=== PATIENT | female | born 1965 | race Hispanic/Latino ===

== ENCOUNTER → 2018-04-13 | Outpatient (CLI) | payer OTHER | END | disposition home or self-care (01) | LOC: RAH 13:06 | PROVIDERS: ATTEND Obstetrics & Gynecology | DX: R10.2 Pelvic and perineal pain (principal) | CPT/HCPCS: 76856 ==

== ENCOUNTER → 2018-05-02 | Outpatient (CLI) | payer OTHER | END | disposition home or self-care (01) | LOC: RAH 12:32 | PROVIDERS: ATTEND Obstetrics & Gynecology | DX: Z12.31 Encounter for screening mammogram for malignant neoplasm of breast (principal) | CPT/HCPCS: 77067 ==

== ENCOUNTER → 2018-05-07 | Outpatient (CLI) | payer OTHER ==
[2018-05-07 12:48] LABS: ALBUMIN 3.9 g/dL (3.5-5.0); BILIRUBIN,TOTAL 0.3 mg/dL (0.2-1.0); CREATININE 0.6 mg/dL (0.5-1.5)
== END | disposition home or self-care (01) ==
LOC: LAB 11:51
PROVIDERS: ATTEND Internal Medicine
DX: R10.33 Periumbilical pain (principal)
CPT/HCPCS: 36415; 80053

== ENCOUNTER → 2018-05-10 | Outpatient (CLI) | payer OTHER ==
[~2018-05-10] MED LIST: IOHEXOL 350 MG/ML 100ML INFUS..BTL IV ONE
== END | disposition home or self-care (01) ==
LOC: OIH 09:56
PROVIDERS: ATTEND Internal Medicine
DX: K57.30 Diverticulosis of large intestine without perforation or abscess without bleeding (principal); K44.9 Diaphragmatic hernia without obstruction or gangrene
CPT/HCPCS: 74178; Q9967

== ENCOUNTER 2018-06-15 05:32 | Day surgery (SDC) | payer OTHER ==
[~2018-06-15] VITALS: Ht 152.4 cm; Wt 88.9 kg
[~2018-06-15 05:32] MED LIST changes: -IOHEXOL 350 MG/ML 100ML INFUS..BTL IV ONE; +OMEP20CA10 PO
[2018-06-15] MEDS ORDERED: SODIUM CHLORIDE 0.9% 1000ML 1,000 ML IV ONE (05:54)
[2018-06-15 06:06] VITALS: BP 126/70
[2018-06-15] MEDS ORDERED: LIDOCAINE HCL 1% 20 ML VIAL ONE (07:09)
[2018-06-15] MEDS ORDERED: PROPOFOL 10 MG/ML 20ML VIAL IV ONE ×2 (07:17→07:36)
[2018-06-15 07:47] VITALS: BP 97/46
[2018-06-15 07:51] VITALS: BP 96/59
[2018-06-15 07:56] VITALS: BP 103/69
[2018-06-15 08:04] VITALS: BP 115/68
== END 2018-06-15 08:21 | disposition home or self-care (01) ==
LOC: DAH 05:32 → ENDO 05:32
PROVIDERS: ATTEND Internal Medicine
DX: Z12.11 Encounter for screening for malignant neoplasm of colon (principal); D12.2 Benign neoplasm of ascending colon; K63.5 Polyp of colon; K57.30 Diverticulosis of large intestine without perforation or abscess without bleeding; K64.0 First degree hemorrhoids; K29.50 Unspecified chronic gastritis without bleeding; K31.7 Polyp of stomach and duodenum; K44.9 Diaphragmatic hernia without obstruction or gangrene; K29.80 Duodenitis without bleeding; K31.89 Other diseases of stomach and duodenum; K21.0 Gastro-esophageal reflux disease with esophagitis; Z90.49 Acquired absence of other specified parts of digestive tract; Z98.890 Other specified postprocedural states; E66.9 Obesity, unspecified; Z68.39 Body mass index [BMI] 39.0-39.9, adult; Z86.010 Personal history of colon polyps
CPT/HCPCS: 43239; 43251; 45380; A4606; J2704 ×2; J7030

== ENCOUNTER → 2018-06-29 | Outpatient (CLI) | payer OTHER ==
[2018-06-29 10:57] LABS: BASOPHILS % (AUTO) 0.8 % (0.0-5.0); EOSINOPHILS % (AUTO) 1.1 % (0.0-8.0); HEMATOCRIT 43.5 % (36-48); MEAN CORPUSCULAR HEMOGLOBIN 28.1 pg (27.0-33.0); MEAN CORPUSCULAR HGB CONC 32.6 g/dL (32.0-36.0); MEAN CORPUSCULAR VOLUME 86.1 fL (79-99); MONOCYTES % (AUTO) 8.4 % (3.0-13.0); NEUTROPHILS % (AUTO) 50.7 % (40.0-77.0); PLATELET COUNT (AUTO) 291 K/uL (130-400); RED BLOOD CELL COUNT(AUTO) 5.05 MIL/uL (4.00-5.50); RED CELL DISTRIBUTION WIDTH 13.4 % (11.0-15.5); WHITE BLOOD COUNT (AUTO) 4.1 K/uL (4.8-10.8)
[2018-06-29 11:11] LABS: HEMOGLOBIN A1C 5.9 % (4.0-6.0)
[2018-06-29 11:22] LABS: BILIRUBIN,TOTAL 0.4 mg/dL (0.2-1.0); CREATININE 0.6 mg/dL (0.5-1.5); POTASSIUM 4.2 mmol/L (3.5-5.1); THYROID STIMULATING HORMONE 0.6 uIU/mL (0.36-3.74); TOTAL PROTEIN, SERUM 8.1 g/dL (6.0-8.3)
== END | disposition home or self-care (01) ==
LOC: LAB 10:13
PROVIDERS: ATTEND Internal Medicine
DX: R63.5 Abnormal weight gain (principal)
CPT/HCPCS: 36415; 80053; 80061; 83036; 84443; 85025

== ENCOUNTER 2018-07-20 05:30 | Day surgery (SDC) | payer OTHER ==
[2018-07-17 13:19] VITALS: BP 170/73
[2018-07-17 13:26] LABS: EOSINOPHILS % (AUTO) 1.8 % (0.0-8.0); HEMATOCRIT 41.4 % (36-48); LYMPHOCYTES % (AUTO) 39.4 % (21.0-51.0); MEAN CORPUSCULAR HEMOGLOBIN 28.3 pg (27.0-33.0); MEAN CORPUSCULAR HGB CONC 33.1 g/dL (32.0-36.0); MEAN CORPUSCULAR VOLUME 85.7 fL (79-99); MONOCYTES % (AUTO) 8.9 % (3.0-13.0); NEUTROPHILS % (AUTO) 48.9 % (40.0-77.0); NUCLEATED RED BLOOD CELLS 0.1 % (0.0-0.19); PLATELET COUNT (AUTO) 229 K/uL (130-400); RED BLOOD CELL COUNT(AUTO) 4.83 MIL/uL (4.00-5.50); RED CELL DISTRIBUTION WIDTH 13.5 % (11.0-15.5); WHITE BLOOD COUNT (AUTO) 4.6 K/uL (4.8-10.8)
[2018-07-17 13:38] LABS: ALBUMIN 3.9 g/dL (3.5-5.0); BILIRUBIN,TOTAL 0.4 mg/dL (0.2-1.0); CREATININE 0.7 mg/dL (0.5-1.5); POTASSIUM 3.6 mmol/L (3.5-5.1)
[2018-07-20] VITALS (26 sets, daily range): BP systolic 99–130; BP diastolic 47–72
[~2018-07-20] VITALS: Ht 152.4 cm; Wt 90.1 kg
[~2018-07-20 05:30] MED LIST changes: +TERB250T51 PO
[2018-07-20] MEDS ORDERED: LACTATED RINGERS 1000ML 1,000 ML IV ONE (05:49)
[2018-07-20] MEDS ORDERED: BUPIVACAINE/PF 0.25% 30ML VIAL IJ ONE (05:49)
[2018-07-20] MEDS: CEFAZOLIN SODIUM 1 GM VIAL ONE ×2 (06:10→07:20)
[2018-07-20] MEDS ORDERED: MIDAZOLAM HCL 1 MG/ML 2ML VIAL ONE (06:32)
[2018-07-20] MEDS ORDERED: ONDANSETRON HCL 4 MG/2 ML VIAL ONE ×2 (06:32→10:04)
[2018-07-20] MEDS ORDERED: PROPOFOL 10 MG/ML 20ML VIAL IV ONE (06:32)
[2018-07-20] MEDS ORDERED: LIDOCAINE PF 2% 5ML ABBOJECT ONE (06:32)
[2018-07-20] MEDS ORDERED: ROCURONIUM 10MG/1ML SYR 10 MG/ML ML ONE ×2 (06:33→08:12)
[2018-07-20] MEDS ORDERED: FENTANYL CITRATE PF 50 MCG/1 ML 2ML VIAL ONE ×4 (06:34→10:04)
[2018-07-20] MEDS ORDERED: VASOPRESSIN 20 UNITS/ML 1ML VIAL ONE (07:23)
[2018-07-20] MEDS ORDERED: EPHEDRINE SULFATE 50 MG/ML AMPULE ONE (07:33)
[2018-07-20] MEDS ORDERED: MAGNESIUM SULFATE 1 GM/2 ML VIAL ONE (07:45)
[2018-07-20] MEDS ORDERED: GLYCOPYRROLATE 1 MG/5 ML SYRINGE ONE (09:21)
[2018-07-20] MEDS ORDERED: ESMOLOL HCL 10 MG/ML 10 ML VIAL ONE (09:31)
[2018-07-20] MEDS ORDERED: METOCLOPRAMIDE 10 MG/2 ML VIAL ONE (10:04)
[2018-07-20] MEDS ORDERED: FAMOTIDINE/PF 20 MG/2 ML VIAL IV ONE (10:06)
[2018-07-20] MEDS ORDERED: PROMETHAZINE HCL 25 MG/ML 1ML AMPULE IM ONE (13:27)
[2018-07-20] MEDS ORDERED: PROMETHAZINE HCL 25 MG/ML 1ML AMPULE IM SCH (14:15)
== END 2018-07-20 15:15 | disposition home or self-care (01) ==
LOC: DAH 05:30
PROVIDERS: ATTEND Obstetrics & Gynecology
DX: D25.9 Leiomyoma of uterus, unspecified (principal); Z68.38 Body mass index [BMI] 38.0-38.9, adult; Z79.899 Other long term (current) drug therapy; Z82.49 Family history of ischemic heart disease and other diseases of the circulatory system; Z80.41 Family history of malignant neoplasm of ovary; Z86.010 Personal history of colon polyps; E66.01 Morbid (severe) obesity due to excess calories
CPT/HCPCS: 36415; 58545; 80053; 85025; 86850; 86900; 86901; 88305; A4215; A4218; A4344; A4452; A4510; A4600; A4649 ×3; A4930; C1769 ×3; J0690; J2001; J2250; J2405 ×2; J2550; J2704; J2765; J3010 ×4; J3475; J3490 ×6; J7030; J7040; J7120 ×2

== ENCOUNTER → 2018-08-17 | Outpatient (CLI) | payer OTHER | END | disposition home or self-care (01) | LOC: LAB 16:33 | PROVIDERS: ATTEND Obstetrics & Gynecology | DX: N95.1 Menopausal and female climacteric states (principal) | CPT/HCPCS: 36415; 82670; 83001 ==

== ENCOUNTER → 2018-08-20 | Outpatient (CLI) | payer OTHER ==
[2018-08-20 08:20] LABS: ALBUMIN 3.7 g/dL (3.5-5.0); BILIRUBIN,DIRECT 0.1 mg/dL (0.0-0.3); BILIRUBIN,TOTAL 0.3 mg/dL (0.2-1.0); TOTAL PROTEIN, SERUM 7.6 g/dL (6.0-8.3)
== END | disposition home or self-care (01) ==
LOC: LAB 07:37
PROVIDERS: ATTEND Internal Medicine
DX: Z79.899 Other long term (current) drug therapy (principal)
CPT/HCPCS: 36415; 80076

== ENCOUNTER → 2019-01-01 | Outpatient (CLI) | payer OTHER ==
[2019-01-01 08:10] LABS: BASOPHILS % (AUTO) 0.8 % (0.0-5.0); EOSINOPHILS % (AUTO) 1.5 % (0.0-8.0); HEMATOCRIT 41.2 % (36-48); LYMPHOCYTES % (AUTO) 37.5 % (21.0-51.0); MEAN CORPUSCULAR HEMOGLOBIN 28.7 pg (27.0-33.0); MEAN CORPUSCULAR HGB CONC 33.3 g/dL (32.0-36.0); MEAN CORPUSCULAR VOLUME 85.9 fL (79-99); MONOCYTES % (AUTO) 7.9 % (3.0-13.0); NEUTROPHILS % (AUTO) 52.3 % (40.0-77.0); PLATELET COUNT (AUTO) 304 K/uL (130-400); RED BLOOD CELL COUNT(AUTO) 4.79 MIL/uL (4.00-5.50); RED CELL DISTRIBUTION WIDTH 13.7 % (11.0-15.5); WHITE BLOOD COUNT (AUTO) 5.7 K/uL (4.8-10.8)
[2019-01-01 08:25] LABS: ALBUMIN 3.8 g/dL (3.5-5.0); BILIRUBIN,TOTAL 0.3 mg/dL (0.2-1.0); CREATININE 0.7 mg/dL (0.5-1.5); POTASSIUM 4.3 mmol/L (3.5-5.1); TOTAL PROTEIN, SERUM 7.8 g/dL (6.0-8.3)
== END | disposition home or self-care (01) ==
LOC: LAB 07:12
PROVIDERS: ATTEND Internal Medicine
DX: R73.01 Impaired fasting glucose (principal); E78.5 Hyperlipidemia, unspecified
CPT/HCPCS: 36415; 80053; 80061; 83036; 85025

== ENCOUNTER → 2019-01-11 | Outpatient (CLI) | payer OTHER | END | disposition home or self-care (01) | LOC: RAH 16:32 | PROVIDERS: ATTEND Internal Medicine | DX: M47.812 Spondylosis without myelopathy or radiculopathy, cervical region (principal) | CPT/HCPCS: 72040 ==

== ENCOUNTER → 2019-05-03 | Outpatient (CLI) | payer OTHER ==
[~2019-05-03] MED LIST changes: +OMEP-50 PO; -OMEP20CA10 PO
== END | disposition home or self-care (01) ==
LOC: RAH 11:35
PROVIDERS: ATTEND Internal Medicine
DX: Z12.31 Encounter for screening mammogram for malignant neoplasm of breast (principal)
CPT/HCPCS: 77067

== ENCOUNTER → 2019-05-31 | Outpatient (CLI) | payer OTHER | END | disposition home or self-care (01) | LOC: RAH 12:50 | PROVIDERS: ATTEND Surgery | DX: K43.2 Incisional hernia without obstruction or gangrene (principal); K57.90 Diverticulosis of intestine, part unspecified, without perforation or abscess without bleeding; N20.0 Calculus of kidney | CPT/HCPCS: 74176 ==

== ENCOUNTER → 2019-06-04 | Outpatient (CLI) | payer OTHER ==
[2019-06-04 08:27] LABS: HEMOGLOBIN A1C 5.8 % (4.0-6.0)
[2019-06-04 08:41] LABS: ALBUMIN 3.6 g/dL (3.5-5.0); BILIRUBIN,TOTAL 0.3 mg/dL (0.2-1.0); CREATININE 0.7 mg/dL (0.5-1.5); POTASSIUM 4.5 mmol/L (3.5-5.1); TOTAL PROTEIN, SERUM 7.5 g/dL (6.0-8.3)
== END | disposition home or self-care (01) ==
LOC: LAB 07:04
PROVIDERS: ATTEND Internal Medicine
DX: E78.5 Hyperlipidemia, unspecified (principal); E88.81 Metabolic syndrome and other insulin resistance; I10 Essential (primary) hypertension; E11.65 Type 2 diabetes mellitus with hyperglycemia
CPT/HCPCS: 36415; 80053; 80061; 82043; 83036

== ENCOUNTER → 2019-06-17 | Outpatient (CLI) | payer OTHER | END | disposition home or self-care (01) | LOC: RAH 11:35 | PROVIDERS: ATTEND Internal Medicine | DX: D25.9 Leiomyoma of uterus, unspecified (principal) | CPT/HCPCS: 76830 ==

== ENCOUNTER 2019-07-09 13:00 | Observation (INO) | payer OTHER ==
[~2019-07-09] VITALS: Ht 152.4 cm; Wt 91.8 kg
[2019-07-09 14:48] LABS: BASOPHILS % (AUTO) 0.4 % (0.0-5.0); EOSINOPHILS % (AUTO) 2.5 % (0.0-8.0); HEMATOCRIT 39.6 % (36-48); LYMPHOCYTES % (AUTO) 32.7 % (21.0-51.0); MEAN CORPUSCULAR HGB CONC 33.8 g/dL (32.0-36.0); MEAN CORPUSCULAR VOLUME 85.7 fL (79-99); MONOCYTES % (AUTO) 9.5 % (3.0-13.0); NEUTROPHILS % (AUTO) 54.8 % (40.0-77.0); PLATELET COUNT (AUTO) 323 K/uL (130-400); RED BLOOD CELL COUNT(AUTO) 4.62 MIL/uL (4.00-5.50); RED CELL DISTRIBUTION WIDTH 13.2 % (11.0-15.5); WHITE BLOOD COUNT (AUTO) 6.9 K/uL (4.8-10.8)
[2019-07-09 15:13] VITALS: BP 142/69
[2019-07-09] MEDS ORDERED: PROG200C11 PO (15:31)
[2019-07-09] MEDS ORDERED: ESOM40CA54 PO (15:31)
[2019-07-09] MEDS ORDERED: estradiol patch (15:31)
[2019-07-11] VITALS (24 sets, daily range): BP systolic 117–146; BP diastolic 65–79
[2019-07-11] MEDS: CEFAZOLIN SODIUM 1 GM VIAL IVP SCH ×4 (09:45→19:41)
[2019-07-11] MEDS ORDERED: LACTATED RINGERS 1000ML 1,000 ML IV ONE (10:13)
[2019-07-11] MEDS ORDERED: SCOPOLAMINE HYDROBROMIDE 1 EACH ADH..PATCH TD ONE (10:47)
[2019-07-11] MEDS ORDERED: METOCLOPRAMIDE 10 MG/2 ML VIAL ONE (10:47)
[2019-07-11] MEDS ORDERED: PROPOFOL 10 MG/ML 20ML VIAL IV ONE (10:54)
[2019-07-11] MEDS ORDERED: MIDAZOLAM HCL 1 MG/ML 2ML VIAL ONE (10:54)
[2019-07-11] MEDS ORDERED: LIDOCAINE PF 2% 5ML ABBOJECT ONE (10:54)
[2019-07-11] MEDS ORDERED: FENTANYL CITRATE PF 50 MCG/1 ML 2ML VIAL ONE ×2 (10:55→12:06)
[2019-07-11] MEDS ORDERED: ROCURONIUM 10MG/1ML SYR 10 MG/ML ML ONE ×2 (10:55→12:21)
[2019-07-11] MEDS ORDERED: DEXAMETHASONE SOD PHOSPHATE 10MG/ML 1ML VIAL ONE (11:47)
[2019-07-11] MEDS ORDERED: ONDANSETRON HCL 4 MG/2 ML VIAL ONE (11:48)
[2019-07-11] MEDS ORDERED: DiphenhydrAMINE HCL 50 MG/ML VIAL ONE (11:48)
[2019-07-11] MEDS ORDERED: GLYCOPYRROLATE 1 MG/5 ML SYRINGE ONE (11:49)
[2019-07-11] MEDS ORDERED: NEOSTIGMINE 5MG/5ML SYR IV ONE (11:49)
[2019-07-11] MEDS ORDERED: ROPIVACAINE 0.5% 5MG/ML 30ML IJ ONE (13:16)
[2019-07-11] MEDS: LACTATED RINGERS 1000ML 1,000 ML IV SCH (13:21)
[2019-07-11] MEDS ORDERED: ONDANSETRON HCL 4 MG/2 ML VIAL IVP PRN (13:30)
[2019-07-11] MEDS ORDERED: ACETAMINOPHEN 325 MG TAB PO PRN (13:30)
[2019-07-11] MEDS ORDERED: SODIUM CHLORIDE 0.9% 10 ML VIAL ONE (13:33)
[2019-07-11] MEDS ORDERED: MEPERIDINE-PF 25 MG/ML SYG ONE (13:57)
--- NOTE | 2019-07-11 15:35 | NUR ---
PT ADMISSION FROM SURGERY POSTOP RECOVERY . PER SERVICES OF DR FARLEY. 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 ASSESSMENT DONE TO HER ABD .DRSG , IS DRY AND CLEAN . SETUP IVF OF LR AT 75 CCHR . SCD ON .HOB UP. SETUP POSTOP . V/S . FOR MONITOR CARE. REVIEW PLAN OF CARE, AND ORDERS . FALL RISK AND CARE, BED LEVEL DOWN. NOTED A FIELDS CATHETER SECURE TO HER LT THIGH, WITH A CLEAR URINE FLOW . TO BEDSIDE FIELDS CATHETER BAG, . OFF THE FLOOR. CALL LIGHT IN REACH.
[2019-07-11] MEDS: MORPHINE SULFATE 2 MG/ML 1ML SYG IV PRN (17:12)
[2019-07-11] MEDS: MORPHINE SULFATE 4 MG/1ML SYG IV PRN (19:47)
[2019-07-12] VITALS (7 sets, daily range): BP systolic 104–135; BP diastolic 59–69
[2019-07-12] MEDS: LACTATED RINGERS 1000ML 1,000 ML IV SCH ×2 (02:16→10:40)
[2019-07-12] MEDS: CEFAZOLIN SODIUM 1 GM VIAL IVP SCH ×3 (03:16→10:39)
[2019-07-12] MEDS: MORPHINE SULFATE 4 MG/1ML SYG IV PRN (03:31)
[2019-07-12 05:45] LABS: CREATININE 0.6 mg/dL (0.5-1.5); POTASSIUM 3.8 mmol/L (3.5-5.1)
[2019-07-12] MEDS: MORPHINE SULFATE 2 MG/ML 1ML SYG IV PRN ×3 (10:40→19:27)
[2019-07-13 03:00] VITALS: BP 137/85
[2019-07-13] MEDS: LACTATED RINGERS 1000ML 1,000 ML IV SCH (04:52)
[2019-07-13 06:10] LABS: CREATININE 0.6 mg/dL (0.5-1.5); POTASSIUM 3.8 mmol/L (3.5-5.1)
[2019-07-13 08:00] VITALS: BP 143/78
[2019-07-13] MEDS: CEFAZOLIN SODIUM 1 GM VIAL IVP SCH (08:55)
[2019-07-13 11:10] VITALS: BP 130/73
[2019-07-13] MEDS ORDERED: TYL4 PO (12:18)
--- NOTE | 2019-07-13 12:46 | NUR ---
PER DR. FARLEY ORDER FIELDS CATH WAS REMOVED USING CLEAN AND SAFE TECHNIQUES. DAUTHER AT BEDSIDE A WITNESS. NO COMPLICATIONS
== END 2019-07-13 13:50 | disposition home or self-care (01) ==
LOC: DAHIP 07-11 09:25 → EDSTATUS 07-11 13:00 → 3BH 07-11 14:45
PROVIDERS: ADMIT Surgery; ATTEND Surgery
DX: K43.2 Incisional hernia without obstruction or gangrene (principal); Z90.49 Acquired absence of other specified parts of digestive tract
CPT/HCPCS: 36415 ×3; 49560; 49568; 71045; 80048 ×2; 85025; 88302; 96374; 96375 ×2; 96376 ×3; A4215; A4221; A4222; A4223; A4452; A4600; A4606; A4663; A6260; C1768; G0378 ×48; J0690 ×5; J1100; J1200; J2001; J2175; J2250; J2270 ×2; J2405 ×2; J2704; J2710; J2765; J2795; J3010 ×2; J3490; J7120 ×6

== ENCOUNTER → 2019-12-09 | Outpatient (CLI) | payer OTHER ==
[~2019-12-09] MED LIST changes: +ESOM40CA54 PO; -OMEP-50 PO; +PROG200C11 PO; -TERB250T51 PO; +TYL4 PO; +estradiol patch
[2019-12-09 08:34] LABS: BASOPHILS % (AUTO) 0.6 % (0.0-5.0); EOSINOPHILS % (AUTO) 4.3 % (0.0-8.0); HEMATOCRIT 40.4 % (36-48); LYMPHOCYTES % (AUTO) 37.5 % (21.0-51.0); MEAN CORPUSCULAR HEMOGLOBIN 29.1 pg (27.0-33.0); MEAN CORPUSCULAR HGB CONC 33.2 g/dL (32.0-36.0); MEAN CORPUSCULAR VOLUME 87.6 fL (79-99); MONOCYTES % (AUTO) 8.9 % (3.0-13.0); NEUTROPHILS % (AUTO) 48.7 % (40.0-77.0); PLATELET COUNT (AUTO) 277 K/uL (130-400); RED BLOOD CELL COUNT(AUTO) 4.61 MIL/uL (4.00-5.50); RED CELL DISTRIBUTION WIDTH 13.2 % (11.0-15.5); WHITE BLOOD COUNT (AUTO) 5.4 K/uL (4.8-10.8)
[2019-12-09 08:48] LABS: ALBUMIN 3.7 g/dL (3.5-5.0); BILIRUBIN,TOTAL 0.3 mg/dL (0.2-1.0); CREATININE 0.7 mg/dL (0.5-1.5); POTASSIUM 4.2 mmol/L (3.5-5.1); TOTAL PROTEIN, SERUM 7.4 g/dL (6.0-8.3)
[2019-12-09 08:49] LABS: HEMOGLOBIN A1C 5.6 % (4.0-6.0)
== END | disposition home or self-care (01) ==
LOC: LAB 07:22
PROVIDERS: ATTEND Internal Medicine
DX: K21.9 Gastro-esophageal reflux disease without esophagitis (principal); R73.01 Impaired fasting glucose; E78.2 Mixed hyperlipidemia
CPT/HCPCS: 36415; 80053; 80061; 83036; 85025

== ENCOUNTER → 2020-05-20 | Outpatient (CLI) | payer OTHER | END | disposition home or self-care (01) | LOC: RAH 15:33 | PROVIDERS: ATTEND Obstetrics & Gynecology | DX: Z12.31 Encounter for screening mammogram for malignant neoplasm of breast (principal) | CPT/HCPCS: 77063; 77067 ==

== ENCOUNTER → 2020-06-16 | Outpatient (CLI) | payer OTHER ==
[2020-06-16 09:59] LABS: ALBUMIN 3.6 g/dL (3.5-5.0); BILIRUBIN,TOTAL 0.3 mg/dL (0.2-1.0); CREATININE 0.6 mg/dL (0.5-1.5); POTASSIUM 3.9 mmol/L (3.5-5.1); TOTAL PROTEIN, SERUM 7.4 g/dL (6.0-8.3)
== END | disposition home or self-care (01) ==
LOC: LAB 07:13
PROVIDERS: ATTEND Internal Medicine
DX: E78.2 Mixed hyperlipidemia (principal); R73.01 Impaired fasting glucose
CPT/HCPCS: 36415; 80053; 80061; 82043

== ENCOUNTER → 2020-12-14 | Outpatient (CLI) | payer OTHER ==
[2020-12-14 08:31] LABS: BASOPHILS % (AUTO) 0.5 % (0.0-5.0); EOSINOPHILS % (AUTO) 2.3 % (0.0-8.0); HEMATOCRIT 40.2 % (36-48); LYMPHOCYTES % (AUTO) 35.1 % (21.0-51.0); MEAN CORPUSCULAR HEMOGLOBIN 29.2 pg (27.0-33.0); MEAN CORPUSCULAR HGB CONC 32.8 g/dL (32.0-36.0); MEAN CORPUSCULAR VOLUME 88.9 fL (79-99); MONOCYTES % (AUTO) 8.7 % (3.0-13.0); NEUTROPHILS % (AUTO) 53.1 % (40.0-77.0); PLATELET COUNT (AUTO) 270 K/uL (130-400); RED BLOOD CELL COUNT(AUTO) 4.52 MIL/uL (4.00-5.50); RED CELL DISTRIBUTION WIDTH 12.5 % (11.0-15.5)
[2020-12-14 08:47] LABS: ALBUMIN 3.7 g/dL (3.5-5.0); BILIRUBIN,TOTAL 0.3 mg/dL (0.2-1.0); CREATININE 0.8 mg/dL (0.5-1.5); POTASSIUM 4.3 mmol/L (3.5-5.1); TOTAL PROTEIN, SERUM 7.6 g/dL (6.0-8.3)
== END | disposition home or self-care (01) ==
LOC: LAB 07:37
PROVIDERS: ATTEND Internal Medicine
DX: E78.2 Mixed hyperlipidemia (principal); R73.01 Impaired fasting glucose
CPT/HCPCS: 36415; 80053; 80061; 82043; 83036; 85025

== ENCOUNTER → 2021-01-19 | Outpatient (CLI) | payer OTHER | END | disposition home or self-care (01) | LOC: LAB 10:00 | PROVIDERS: ATTEND Internal Medicine Cardiovascular Disease | DX: Z20.822 Contact with and (suspected) exposure to COVID-19 (principal) | CPT/HCPCS: 87635; C9803 ==

== ENCOUNTER → 2021-04-30 | Outpatient (CLI) | payer OTHER | END | disposition home or self-care (01) | LOC: RAH 12:24 | PROVIDERS: ATTEND Internal Medicine | DX: M47.812 Spondylosis without myelopathy or radiculopathy, cervical region (principal); M85.88 Other specified disorders of bone density and structure, other site; M54.6 Pain in thoracic spine | CPT/HCPCS: 72050; 72070 ==

== ENCOUNTER 2021-06-08 06:57 | Day surgery (SDC) | payer OTHER ==
[~2021-06-08] VITALS: Ht 152.4 cm; Wt 88.5 kg
[~2021-06-08 06:57] MED LIST changes: +0.9%NACL 1000ML 1,000 ML IV ONE; +CALC-1125 PO; +CALC500T13 PO; +FOLI-114 PO; -PROG200C11 PO; -TYL4 PO; -estradiol patch
[2021-06-08 07:30] VITALS: BP 133/70
[2021-06-08] MEDS ORDERED: PROPOFOL 10 MG/ML 20ML VIAL IV ONE ×2 (08:49→08:52)
[2021-06-08 09:15] VITALS: BP 109/62
[2021-06-08 09:20] VITALS: BP 114/64
[2021-06-08 09:25] VITALS: BP 113/69
== END 2021-06-08 09:55 | disposition home or self-care (01) ==
LOC: ENDO 06:57 → DAH 06:57 → ENDO 09:55
PROVIDERS: ATTEND Internal Medicine Gastroenterology
DX: Z12.11 Encounter for screening for malignant neoplasm of colon (principal); K21.00 Gastro-esophageal reflux disease with esophagitis, without bleeding; K44.9 Diaphragmatic hernia without obstruction or gangrene; K31.7 Polyp of stomach and duodenum; K29.50 Unspecified chronic gastritis without bleeding; K31.89 Other diseases of stomach and duodenum; K57.30 Diverticulosis of large intestine without perforation or abscess without bleeding; K64.0 First degree hemorrhoids; E66.01 Morbid (severe) obesity due to excess calories; Z90.49 Acquired absence of other specified parts of digestive tract; Z98.890 Other specified postprocedural states; Z86.010 Personal history of colon polyps; Z98.891 History of uterine scar from previous surgery; Z72.89 Other problems related to lifestyle; Z68.41 Body mass index [BMI] 40.0-44.9, adult
CPT/HCPCS: 43239; 43251; 45378; 87635; A4215 ×2; A4221; A4222; A4223; A4606; A4620; A4657; A4663; C9803; J2704 ×2; J7030

== ENCOUNTER → 2021-06-30 | Outpatient (CLI) | payer OTHER ==
[~2021-06-30] MED LIST changes: -0.9%NACL 1000ML 1,000 ML IV ONE
[2021-06-30 08:31] LABS: HEMOGLOBIN A1C 6.1 % (4.0-6.0)
[2021-06-30 08:34] LABS: CREATININE 0.6 mg/dL (0.5-1.5); POTASSIUM 3.9 mmol/L (3.5-5.1)
[2021-06-30 08:35] LABS: ALBUMIN 3.6 g/dL (3.5-5.0); BILIRUBIN,TOTAL 0.2 mg/dL (0.2-1.0); TOTAL PROTEIN, SERUM 7.5 g/dL (6.0-8.3)
== END | disposition home or self-care (01) ==
LOC: LAB 07:23
PROVIDERS: ATTEND Internal Medicine
DX: E78.2 Mixed hyperlipidemia (principal); R73.01 Impaired fasting glucose
CPT/HCPCS: 36415; 80053; 80061; 83036

== ENCOUNTER → 2021-09-28 | Outpatient (CLI) | payer OTHER ==
[~2021-09-28] MED LIST changes: +IOHEXOL-350 75 ML VIAL IV ONE
== END | disposition home or self-care (01) ==
LOC: RAH 10:00
PROVIDERS: ATTEND Surgery
DX: K43.2 Incisional hernia without obstruction or gangrene (principal); K44.9 Diaphragmatic hernia without obstruction or gangrene; K57.90 Diverticulosis of intestine, part unspecified, without perforation or abscess without bleeding; M47.815 Spondylosis without myelopathy or radiculopathy, thoracolumbar region; I70.8 Atherosclerosis of other arteries; Z90.49 Acquired absence of other specified parts of digestive tract
CPT/HCPCS: 74177; Q9967

== ENCOUNTER 2021-11-04 06:52 | Day surgery (SDC) | payer OTHER ==
[2021-10-28 16:10] LABS: BASOPHILS % (AUTO) 0.5 % (0.0-5.0); EOSINOPHILS % (AUTO) 1.6 % (0.0-8.0); HEMATOCRIT 40.9 % (36-48); MEAN CORPUSCULAR HEMOGLOBIN 28.1 pg (27.0-33.0); MONOCYTES % (AUTO) 8.9 % (3.0-13.0); NEUTROPHILS % (AUTO) 46.8 % (40.0-77.0); PLATELET COUNT (AUTO) 280 K/uL (130-400); RED BLOOD CELL COUNT(AUTO) 4.81 MIL/uL (4.00-5.50); RED CELL DISTRIBUTION WIDTH 13.2 % (11.0-15.5); WHITE BLOOD COUNT (AUTO) 5.6 K/uL (4.8-10.8)
[2021-10-28 16:18] LABS: CREATININE 0.6 mg/dL (0.5-1.5); POTASSIUM 3.9 mmol/L (3.5-5.1)
[2021-11-03 09:04] VITALS: BP 144/74
[2021-11-04] VITALS (18 sets, daily range): BP systolic 99–136; BP diastolic 47–77
[~2021-11-04] VITALS: Ht 152.4 cm; Wt 91.5 kg
[2021-11-04] MEDS: CEFAZOLIN SODIUM 1 GM VIAL IVP SCH ×2 (06:00→09:30)
[~2021-11-04 06:52] MED LIST changes: -CALC-1125 PO; -CALC500T13 PO; -IOHEXOL-350 75 ML VIAL IV ONE; +LACTATED RINGERS 1000ML 1,000 ML IV SCH
[2021-11-04] MEDS ORDERED: GLYCOPYRROLATE 1 MG/5 ML SYRINGE ONE (08:24)
[2021-11-04] MEDS ORDERED: PROPOFOL 10 MG/ML 20ML VIAL IV ONE (08:24)
[2021-11-04] MEDS ORDERED: DEXAMETHASONE SOD PHOSPHATE 10MG/ML 1ML VIAL ONE (08:24)
[2021-11-04] MEDS ORDERED: MIDAZOLAM HCL 1 MG/ML 2ML VIAL ONE (08:24)
[2021-11-04] MEDS ORDERED: LIDOCAINE PF 100MG/5ML (2%) SYRINGE 5ML ONE (08:24)
[2021-11-04] MEDS ORDERED: SUCCINYLCHOLINE CHLORIDE 20 MG/ML 10 ML VIAL ONE (08:24)
[2021-11-04] MEDS ORDERED: NEOSTIGMINE 5MG/5ML SYR IV ONE (08:24)
[2021-11-04] MEDS ORDERED: ROCURONIUM 10MG/1ML SYR 10 MG/ML ML ONE (08:25)
[2021-11-04] MEDS ORDERED: ONDANSETRON 4MG INJ ONE ×2 (08:25→08:43)
[2021-11-04] MEDS ORDERED: FENTANYL CITRATE PF 50 MCG/1 ML 2ML VIAL ONE ×2 (08:26→09:43)
[2021-11-04] MEDS ORDERED: ROPIVACAINE 0.5% 5MG/ML 30ML IJ ONE (08:41)
[2021-11-04] MEDS ORDERED: SCOPOLAMINE HYDROBROMIDE 1 EACH ADH..PATCH TD ONE (08:46)
[2021-11-04] MEDS ORDERED: ARTIFICIAL TEARS 3.5 GM OINTMENT ONE (09:29)
[2021-11-04] MEDS ORDERED: BUPIVACAINE/EPI/PF 0.5% 30ML VIAL IJ ONE (09:39)
[2021-11-04] MEDS ORDERED: PHENYLEPHRINE HCL 10 MG/ML 1ML VIAL IV ONE (09:41)
[2021-11-04] MEDS ORDERED: KETOROLAC 30MG VIAL (30MG/ML) ONE (10:40)
[2021-11-04] MEDS ORDERED: MEPERIDINE-PF 25 MG/ML SYG ONE (11:03)
== END 2021-11-04 12:30 | disposition home or self-care (01) ==
LOC: DAH 06:52
PROVIDERS: ATTEND Surgery
DX: R10.9 Unspecified abdominal pain (principal); K66.0 Peritoneal adhesions (postprocedural) (postinfection); K43.2 Incisional hernia without obstruction or gangrene; K21.9 Gastro-esophageal reflux disease without esophagitis; E66.01 Morbid (severe) obesity due to excess calories; Z98.890 Other specified postprocedural states; Z98.891 History of uterine scar from previous surgery; Z68.39 Body mass index [BMI] 39.0-39.9, adult
CPT/HCPCS: 36415; 49329; 80048; 85025; 87635; 93005; A4213; A4215; A4221; A4222; A4223; A4649; A4663; C9803; J0330; J0690; J1100; J1885; J2001; J2175; J2250; J2370; J2405 ×2; J2704; J2710; J2795; J3010 ×2; J3490 ×2; J7030 ×2; J7120

== ENCOUNTER 2021-12-09 10:31 | Day surgery (SDC) | payer OTHER ==
[~2021-12-09] VITALS: Ht 152.4 cm; Wt 90.7 kg
[2021-12-09] VITALS (8 sets, daily range): BP systolic 112–146; BP diastolic 66–86
[~2021-12-09 10:31] MED LIST changes: -FOLI-114 PO; -LACTATED RINGERS 1000ML 1,000 ML IV SCH
[2021-12-09] MEDS ORDERED: 0.9%NACL 1000ML 1,000 ML IV ONE (10:39)
[2021-12-09] MEDS ORDERED: PROPOFOL 10 MG/ML 20ML VIAL IV ONE (12:25)
[2021-12-09] MEDS ORDERED: LIDOCAINE PF 100MG/5ML (2%) SYRINGE 5ML ONE (12:25)
== END 2021-12-09 13:09 | disposition home or self-care (01) ==
LOC: ENDO 10:31
PROVIDERS: ATTEND Internal Medicine Gastroenterology
DX: Z09 Encounter for follow-up examination after completed treatment for conditions other than malignant neoplasm (principal); Z86.010 Personal history of colon polyps; K57.30 Diverticulosis of large intestine without perforation or abscess without bleeding; K21.9 Gastro-esophageal reflux disease without esophagitis; K44.9 Diaphragmatic hernia without obstruction or gangrene; K64.0 First degree hemorrhoids; E66.9 Obesity, unspecified; Z79.899 Other long term (current) drug therapy; Z20.822 Contact with and (suspected) exposure to COVID-19
CPT/HCPCS: 45378; 87635; A4215 ×2; A4221; A4222; A4223; A4606; A4620; A4663; C9803; J2001; J2704; J7030

== ENCOUNTER → 2022-01-18 | Outpatient (CLI) | payer OTHER ==
[2022-01-18 08:39] LABS: BASOPHILS % (AUTO) 0.7 % (0.0-5.0); EOSINOPHILS % (AUTO) 2.1 % (0.0-8.0); HEMATOCRIT 41.4 % (36-48); LYMPHOCYTES % (AUTO) 35.6 % (21.0-51.0); MEAN CORPUSCULAR HGB CONC 32.9 g/dL (32.0-36.0); MEAN CORPUSCULAR VOLUME 85.2 fL (79-99); NEUTROPHILS % (AUTO) 51.4 % (40.0-77.0); PLATELET COUNT (AUTO) 288 K/uL (130-400); RED BLOOD CELL COUNT(AUTO) 4.86 MIL/uL (4.00-5.50); RED CELL DISTRIBUTION WIDTH 13.5 % (11.0-15.5); WHITE BLOOD COUNT (AUTO) 4.3 K/uL (4.8-10.8)
[2022-01-18 08:50] LABS: HEMOGLOBIN A1C 6.2 % (4.0-6.0)
[2022-01-18 08:54] LABS: ALBUMIN 3.7 g/dL (3.5-5.0); BILIRUBIN,TOTAL 0.2 mg/dL (0.2-1.0); CREATININE 0.6 mg/dL (0.5-1.5); POTASSIUM 4.3 mmol/L (3.5-5.1); TOTAL PROTEIN, SERUM 7.6 g/dL (6.0-8.3)
== END | disposition home or self-care (01) ==
LOC: LAB 07:36
PROVIDERS: ATTEND Internal Medicine
DX: K21.9 Gastro-esophageal reflux disease without esophagitis (principal); E78.5 Hyperlipidemia, unspecified; E78.2 Mixed hyperlipidemia; R73.01 Impaired fasting glucose
CPT/HCPCS: 36415; 80053; 80061; 82043; 83036; 85025

== ENCOUNTER → 2022-07-04 | Outpatient (CLI) | payer OTHER ==
[2022-07-04 09:13] LABS: HEMOGLOBIN A1C 5.9 % (4.0-6.0)
[2022-07-04 09:28] LABS: ALBUMIN 3.8 g/dL (3.5-5.0); CREATININE 0.6 mg/dL (0.5-1.5); POTASSIUM 4.4 mmol/L (3.5-5.1); THYROID STIMULATING HORMONE 1.09 uIU/mL (0.36-3.74); TOTAL PROTEIN, SERUM 7.9 g/dL (6.0-8.3)
== END | disposition home or self-care (01) ==
LOC: LAB 07:49
PROVIDERS: ATTEND Internal Medicine
DX: E78.2 Mixed hyperlipidemia (principal); E88.81 Metabolic syndrome and other insulin resistance
CPT/HCPCS: 36415; 80053; 80061; 83036; 84443